=== PATIENT | female | born 1975 | race Caucasian/White ===

== ENCOUNTER → 2020-04-01 | Outpatient (CLI) | payer SELFPAY ==
[2020-04-01 12:29] VITALS: BMI 26.7
== END | disposition home or self-care (01) ==
LOC: LABSPEC 12:46
PROVIDERS: PCP Nurse Practitioner Family; Referring Provider Surgery; Visit Provider Surgery
DX: Z01.818 Encounter for other preprocedural examination (principal)
CPT/HCPCS: 87635; G2023; U0002

== ENCOUNTER 2020-04-02 09:25 | Day surgery (SDC) | payer SELFPAY ==
[2020-04-01 12:29] VITALS: BMI 26.7
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
[2020-04-01 16:35] LABS: Absolute Lymphocyte Count 2.55 X10^3/uL (0.83-4.51); Absolute Neutrophil Count 1.3 X10^3/uL (2.0-7.7); Basophil# 0.04 X10^3/uL; Basophil% 0.9 % (0-1); Eosinophil# 0.25 X10^3/uL; Eosinophils% 5.5 % (0-5); Hematocrit 36.3 % (37-47); Hemoglobin 11.9 g/dL (12.0-15.0); Lymphocyte # 2.55 X10^3/ul (4.0); Lymphocyte % 55.9 % (19-41); Mean Corp Hgb Conc 32.8 g/dL (32-36); Mean Corpuscular Hgb 30.2 pg (27.0-32.0); Mean Corpuscular Volume 92.1 fL (81-99); Mean Platelet Vol. 10.4 fl (6.2-12.0); Monocyte% 8.8 % (0-10); NRBC Flagged by Analyzer 0 % (0-5); Neutrophil # 1.31 X10^3/uL (2.7-7.7); Neutrophil % 28.7 % (47-70); Platelet Count 188 K/mm3 (150-450); RBC Distribution Width CV 12.4 % (11.6-14.6); RBC Distribution Width SD 41.9 fl (35.1-43.9); Red Blood Count 3.94 M/mm3 (4.2-5.4); White Blood Count 4.6 K/mm3 (4.4-11.0)
[2020-04-01 16:41] LABS: ALB/GLOB Ratio 1.1 RATIO (0.9-2.4); AST(SGOT) 50 U/L (15-37); Alanine Aminotransfer ALT/SGPT 57 U/L (13-56); Albumin, Serum 3.9 g/dL (3.2-5.0); Alkaline Phosphatase 65 U/L (45-117); Anion Gap 6 (5-15); BUN 11 mg/dL (7-18); Chloride 108 mmol/L (98-107); Creatinine, Serum 0.84 mg/dL (0.55-1.02); EST Glomerular Filtration Rate 77 mL/min (>60); Est Glom Filt Rate - Afr Amer 93 mL/min (>60); Globulin 3.5 g/dL (2.2-4.2); Glucose 83 mg/dL (74-106); Potassium 4.4 mmol/L (3.5-5.1); Protein, Total 7.4 g/dL (6.4-8.2); Sodium Level 141 mmol/L (136-145)
[2020-04-02] VITALS (13 sets, daily range): BP systolic 92–128; BP diastolic 50–78; PULSE 46–69; RESP 14–16; TEMP 36.1–37; O2SAT 98–100; BMI 27.1
--- NOTE | 2020-04-02 | GALL_PTH ---
PATIENT: KELLY ORDAZ [place] [facility] [id number] AGE/SX: 44/F ROOM: RE04/02/[address]: Dr. Caio Rodríguez MD : 1975 BED: DIS: 04/02/2020 SPEC #: [id number] RECD: 04/02/20 13:51 STATUS: ANNA RETonia #: [id number] YADI: 04/02/20 00:[address]: Caio Rodríguez DEPT: SURGICAL PATHOLOGY RECD BY: Daren Mancera ENTERED: 04/03/20 11:52 SP TYPE: LETI SAGE DR: Sis Soares, TAYLOR Tissues: A - Gallbladder, NOS B - HERNIA Procedures: Surgery Specimen Level II Surgery Specimen Level III HEADER OPERATION: Laparoscopic cholecystectomy with IOC; repair of ventral incisional hernia PRE-OP DIAGNOSIS: Calculus of gallbladder with chronic cholecystitis TISSUE SUBMITTED: A - Gallbladder, B - Incarcerated umbilical hernia contents MICROSCOPIC DIAGNOSIS A. Gallbladder, cholecystectomy: Cholesterolosis, chronic cholecystitis and cholelithiasis. B. Soft of umbilical region: Fibrofatty tissue with mild fibrosis consistent with hernia sac. AM:cristian 04/06/20 MICROSCOPIC DESCRIPTION Slides are reviewed. GROSS DESCRIPTION A - Received is one container labeled with the patient's name and designated gallbladder. The specimen consists of a gallbladder measuring 9.5 cm in length and up to 4 cm in diameter. The external surface is pink-jenkins, smooth and glistening for the most part. Focally it is granular, hemorrhagic and contains cautery artifact. The gallbladder contains green-yellow mucoid bile and one ovoid, jenkins-yellow stone measuring 3 x 2 x 1.5 cm. The mucosa is bile-stained and without any mass lesions. The gallbladder wall measures up to 0.3 cm in thickness. Social Welfare Research Worker sections from the gallbladder and the cystic duct are submitted in one cassette. B - Received in fixative is one container labeled with the patient's name and designated incarcerated umbilical hernia contents. The specimen consists of a piece of yellow adipose tissue measuring 2 x 1.5 x 1 cm. The specimen is bisected and submitted entirely in one cassette. / SJ:cristian 04/03/20 TC:3 CPT: 56764, 36075
--- NOTE | 2020-04-02 07:00 | RAD_ITS ---
STUDY: INTRAOPERATIVE CHOLANGIOGRAM. REASON FOR EXAM: Female, 44 years old. Intraoperative cholangiogram FLUOROSCOPY TIME (if supplied): ( 14.9 seconds ) minutes/seconds. A cine loop consisting of 102 frames was submitted. TECHNIQUE: Contrast was injected. Imaging was submitted. COMPARISON: None. FINDINGS: The common bile duct is not dilated. No intraluminal filling defect is seen. There is free flow of contrast into the duodenum. The intrahepatic biliary ducts are unremarkable. RAD/Cholangiogram/ O R,Initial IMPRESSION: Unremarkable intraoperative cholangiogram. Electronically Signed: Giovanni Lang, at 13:52 EDT , Service support ,
--- NOTE | 2020-04-02 09:35 | EKG12_ITS ---
Test Reason : PRE OP Blood Pressure : / mmHG Vent. Rate : 059 BPM Atrial Rate : 059 BPM P-R Int : 130 ms QRS Dur : 082 ms QT Int : 432 ms P-R-T Axes : -03 031 027 degrees QTc Int : 427 ms Sinus bradycardia Otherwise normal ECG No previous ECGs available Confirmed by BROOKE RAMOS, LEONARDO ([id number]), newspaper photo editor KARMEN FLOREZ ([id number]) on 04/07/2020 4:02:52 PM Referred By: Caio Rodríguez Confirmed By:LEONARDO COX MD
[2020-04-02] MEDS: Lactated Ringers 1,000 ML 100 ML IV ×2 (10:14→13:18)
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
--- NOTE | 2020-04-02 10:47 | DCINST_ITS ---
Discharge Diet: Light diet - advance as tolerated - if you have questions about your diet instructions, please talk to you doctor. Discharge Activity: May Not Drive - for 1 week or while taking narcotic pain medicine. May shower in (days): 1 Lifting Restrictions: 10 pounds Call your doctor if your incision/area has: Continuous Slow Oozing, Sudden Increased Bleeding, Increased Pain/ Swelling, Increased Redness, Foul Smelling Discharge Call your doctor if you observe: Fever of 101 or Higher Suture Line Care: Avoid Pulling/Pushing, Avoid Pinching/Bending Additional Dressing/Incision Instructions:: Change or remove dressing in 4 days. Leave steri-strips in place for 1 week. Allergies/Adverse Reactions: Allergies amoxicillin Allergy (Mild, Verified 04/01/20 15:28) Hives Medications to take at Discharge NK 04/01/20 Primary Care Physician: Sis Soares NP-C [Primary Care Provider] - Test Results: Test results from this visit will be discussed in further detail at your follow- up appointment, if applicable. Please Follow Up With: Caio Rodríguez MD - [phone] When: Please arrange followup 10days. May be virtual or telephone.
[2020-04-02] MEDS: Bupivacaine Mpf 0.5% 30 ML VIAL (12:22)
--- NOTE | 2020-04-02 12:26 | OP.PCM_ITS ---
Problem List (1) Cholelithiasis with chronic cholecystitis Status: Chronic Qualifiers: Cholelithiasis location: gallbladder Biliary obstruction: without biliary obstruction Qualified Code(s): K80.10 - Calculus of gallbladder with chronic cholecystitis without obstruction Report of Operation Date of Procedure: 04/02/20 Pre-Operative Diagnosis: Chronic cholecystitis cholelithiasis Post-Operative Diagnosis: Chronic cholecystitis cholelithiasis. Incarcerated ventral incisional hernia Surgery/Procedure Performed:: Laparoscopic cholecystectomy with selective cholangiograms. Ventral incisional herniorrhaphy Description of Surgical Findings:: Timeout and informed consent was obtained. 44-year-old female was taken to the operating placed by the table underwent general endotracheal intubation esthesia. Clindamycin 900 mg were given intravenously preoperatively. The abdomen sterilely prepped draped. 0.5% Marcaine was used as a local anesthetic. Total of 30 cc was used. Skin sites were pre-anesthetized. A vertical incision was made at the umbilicus sharp dissection carried down through the subcutaneous tissue there was evidence of a previous infraumbilical transverse incision related to a tubal ligation upon getting to the fascia there is evidence of Allen needed omentum within an incisional hernia. The defect 1 cm in diameter. The omentum was dissected free and submitted the specimen. Direct access was gained in the holding sutures of 0 Vicryl placed. A Panchal catheter inserted. The abdomen was insufflated with CO2 to a pressure of 10 mmHg pressure. 10-minute trocar inserted. Inspection revealed some adhesions of omentum to the infraumbilical midline and to the right lower quadrant. No evidence of any bowel involvement. There was evidence of omental adhesions to the gallbladder. The gallbladder otherwise did not appear to be indurated. 5 mm trochars were placed in the epigastric right upper quadrant and right lateral upper quadrant. The omentum was dissected free from the gallbladder and hemostasis was obtained with hemo-lock clips were indicated. The infundibular the gallbladder was dissected free until the critical view was achieved. The cystic duct and cystic artery clearly identified. 2 hemo-lock clips were placed proximally and one distally on the cystic artery prior to transecting it. A hemo-lock clip was placed on the cystic duct incision made the cystic duct into a 14-gauge Angiocath a cholangiogram catheter was inserted. Fluoroscopically control cholangiograms were obtained demonstrating normal duct anatomy and free flow into the small bowel. The cholangiogram catheter was removed and 2 hemo- lock clips were placed on the cystic duct stump prior to transecting it. The gallbladder was then dissected free from the liver bed using electrocautery. Complete hemostasis was intact. The gallbladder was placed in a retrieval bag. The abdomen was allowed to deflate of the CO2 through the viral valve. The fascia at the umbilicus had to be slightly enlarged. Moderate sized stone was noted in the gallbladder. The remaining trochars were removed. The incisional fascial defect was closed with a running 0 Nurolon. Skin edges approximated opted for Monocryl subdermal stitches. Steri-Strips Telfa and OpSite dressings applied. Sponge and instrument and needle counts were reported to the surgeon to be correct. Blood loss minimal. Specimens incarcerated hernia material and gallbladder. Drains none. Blood loss minimal. It is of note that prior to completing the procedure I did place a piece of fibrillar in the liver bed to assure hemostasis. This patient was taken to the recovery room in satisfactory edition without apparent complication. Caio Rodríguez M.D., F.A.C.S. Type of Anesthesia:: General Anesthesiologist: Raghu Marrero
[2020-04-02 14:20] LABS: Bedside Glucose 103 mg/dL (70-110)
== END 2020-04-02 17:35 | disposition home or self-care (01) ==
LOC: SDC 09:27 → AC 09:27
PROVIDERS: PCP Nurse Practitioner Family; Referring Provider Surgery; Visit Provider Surgery
PROC: (CPT 47610; principal; 2020-04-02 11:05)
DX: K80.10 Calculus of gallbladder with chronic cholecystitis without obstruction (principal); K43.0 Incisional hernia with obstruction, without gangrene
CPT/HCPCS: 00790; 47563; 49561; 36415; 74300; 76000; 80053; 82962; 85025; 88302; 88304; 93005; J7120; J0330; J2405